=== PATIENT | male | born 1985 | race Hispanic/Latino ===

== ENCOUNTER 2017-09-10 19:36 | Emergency (ER) | payer SELFPAY ==
--- NOTE | 2017-09-10 20:13 | ED PDOC ---
Arrival/HPI - General Chief Complaint: Substance Abuse Time Seen by Provider: 09/10/17 19:51 Historian: Patient - History of Present Illness Narrative History of Present Illness (Text): 09/10/17 20:10 A 32 year old male, with a history of heroin abuse, presents to the emergency department for overdose. Patient's girlfriend called 911 after finding patient unresponsive. Patient was given Narcan 4 intranasally on field. Patient is now alert and orientedX3. Patient admits to heroin use. Patient denies any suicidal ideation, homicidal ideation. Denies any somatic complaints. 09/10/17 22:03 Symptom Onset: Sudden Symptom Course: Unchanged Activities at Onset: Rest Context: Home Past Medical History - Provider Review Nursing Documentation Reviewed: Yes - Infectious Disease Hx of Infectious Diseases: None - Psychiatric Hx Substance Use: Yes Family/Social History - Physician Review Nursing Documentation Reviewed: Yes Family/Social History: No Known Family HX Smoking Status: Never Smoked Hx Alcohol Use: No Hx Substance Use: Yes Substance used: heroin/cocaine Allergies/Home Meds Allergies/Adverse Reactions: Allergies peach Allergy (Verified 09/10/17 19:46) ITCHING Review of Systems - Physician Review All systems were reviewed & negative as marked: Yes - Review of Systems Constitutional: absent: Fevers, Other (chills) Respiratory: absent: SOB Gastrointestinal: absent: Abdominal Pain Neurological: absent: Headache Psychiatric: absent: Suicidal Ideation, Other (homicidal ideation) Physical Exam Vital Signs Reviewed: Yes Vital Signs Temp Pulse Resp BP Pulse Ox 09/10/17 21:40 88 20 125/65 98 09/10/17 21:28 98.9 F 95 H 20 124/55 L 98 09/10/17 19:40 105 H 14 145/97 H 98 Temperature: Afebrile Blood Pressure: Normal Pulse: Regular Respiratory Rate: Normal Appearance: Positive for: Well-Appearing, Non-Toxic, Comfortable Pain Distress: None Mental Status: Positive for: Alert and Oriented X 3 - Systems Exam Head: Present: Atraumatic, Normocephalic Pupils: Present: PERRL Extroacular Muscles: Present: EOMI Conjunctiva: Present: Normal Mouth: Present: Moist Mucous Membranes Neck: Present: Normal Range of Motion Respiratory/Chest: Present: Clear to Auscultation, Good Air Exchange. No: Respiratory Distress, Accessory Muscle Use Cardiovascular: Present: Regular Rate and Rhythm, Normal S1, S2. No: Murmurs Abdomen: No: Tenderness, Distention, Peritoneal Signs Back: Present: Normal Inspection Upper Extremity: Present: Normal Inspection. No: Cyanosis, Edema Lower Extremity: Present: Normal Inspection. No: Edema Neurological: Present: GCS=15, CN II-XII Intact, Speech Normal Skin: Present: Warm, Dry, Normal Color. No: Rashes Psychiatric: Present: Alert, Oriented x 3, Normal Insight, Normal Concentration Medical Decision Making ED Course and Treatment: 09/10/17 20:08 Impression: A 32 year old male with overdose, admits to using heroin. Plan: -- Reassess and disposition Progress Notes: 09/10/17 21:22 Patient monitored for 2 hours. He is refusing to stay in ED further. It was explained to patient and girlfriend (with his permission) that half life of narcan was shorter than that of heroin and that he could have additional episodes of intoxication causing apnea and . Refusing to stay in ED. AAox3 and ambulating around without issue. - Lab Interpretations Lab Results: Lab Results 09/10/17 20:31: POC Glucose (mg/dL) 125 H - Scribe Statement The provider has reviewed the documentation as recorded by the Scribe Rhianna Sarah Provider Scribe Attestation: All medical record entries made by the Scribe were at my direction and personally dictated by me. I have reviewed the chart and agree that the record accurately reflects my personal performance of the history, physical exam, medical decision making, and the department course for this patient. I have also personally directed, reviewed, and agree with the discharge instructions and disposition. Disposition/Present on Arrival - Present on Arrival Any Indicators Present on Arrival: No History of DVT/PE: No History of Uncontrolled Diabetes: No Urinary Catheter: No History of Decub. Ulcer: No History Surgical Site Infection Following: None - Disposition Have Diagnosis and Disposition been Completed?: Yes Diagnosis: Heroin abuse Disposition: HOME/ ROUTINE Disposition Time: 21:23 Patient Plan: Discharge Condition: GOOD Discharge Instructions (ExitCare): Opioid Use Disorder Additional Instructions: Follow-up with PMD within 2 days. Abstain from opiods. Return to ED if condition worsens. Prescriptions: Naloxone HCl [Narcan] 4 mg NS ONCE #1 spray Forms: [employer] (Vietnamese)
[2017-09-10 21:31] VITALS: RESP 20; TEMP 98.9; O2SAT 98
[2017-09-10 21:41] VITALS: BP 125/65; PULSE 88
== END 2017-09-10 21:40 | disposition home or self-care (01) ==
LOC: ED 19:36
DX: F11.10 Opioid abuse, uncomplicated (principal)